=== PATIENT | male | born 1995 | race African-American/Black ===

== ENCOUNTER 2025-01-01 19:55 | Emergency (ER) | payer OTHER ==
[~2025-01-01] VITALS: Ht 180.3 cm; Wt 72.6 kg
[2025-01-01] MEDS ORDERED: ACETAMINOPHEN ES 500 MG TABLET ONE (20:32)
[2025-01-01] MEDS ORDERED: IBUPROFEN 400 MG TABLET ONE (20:32)
[2025-01-01] MEDS: IBUPROFEN 400 MG TABLET PO ONE (20:34)
[2025-01-01] MEDS: ACETAMINOPHEN ES 500 MG TABLET PO ONE (20:35)
[2025-01-01 20:40] VITALS: BP 118/68; TEMP 98.3; O2SAT 100
== END 2025-01-01 20:40 ==
LOC: ER 19:57
DX: R07.89 Other chest pain (principal); F15.10 Other stimulant abuse, uncomplicated; K59.00 Constipation, unspecified
CPT/HCPCS: 71045-TC